=== PATIENT | male | born 1975 | race Caucasian/White ===

== ENCOUNTER 2022-04-18 07:27 | Inpatient (IN) ==
--- NOTE | 2022-04-16 08:51 | Anesthesiology Consultation ---
Date of Service April 16, 2022 Assessment & Plan (1) Encounter for pre-operative examination: COVID screening: Per assessment on 04/14: No known COVID-19 positive contacts or current COVID-19 related symptoms. Travel screen negative. Surgeon arranging preop COVID testing. Awaiting results. Chart Review Chart Review: Acceptable Risk for Surgery and Patient NOT seen in Pre Admission Testing History Surgery Operation Date: 04/18/22 07:15 Proposed Procedures p Right Hemiglossectomy and Right Functional Neck Dissection - Mary Martinez MD Height/Weight Height: 6 ft 2 in Weight: 74.389 kg Allergies Allergy/AdvReac Type Severity Reaction Status Date / Time Penicillins Allergy Unknown Unknown Verified 04/14/22 12:30 Medications Home Medications Medication Instructions Recorded Confirmed Last Taken lidocaine-prilocaine 2.5 %-2.5 % 1 applic TOPICAL QID #30 g 03/26/22 04/14/22 Unknown topical cream acetaminophen 500 mg tablet 2,000 mg PO Q4H PRN 04/14/22 04/14/22 Unknown Past Medical History Medical History Current smoker Past history of chewing tobacco use age 7 until age 20 Tongue cancer right lower tongue Past Family History Family History Mother Hypertension Stroke Other No family history of adverse response to anesthesia No family history of bleeding disorder Past Surgical History Surgical History History of oral surgery 3 teeth pulled History of surgery on lower extremity left leg (hardware/cydney placement) S/P arthroscopy of shoulder right S/P hardware removal left ankle STOP BANG Total 2 Social History Smoking Status: Current every day smoker tobacco type: cigarettes and smokeless tobacco Smoking cigarettes per day: 10 - 12 Do You Dip or Chew Tobacco: No (quit ~1994) Hx Alcohol Use: Yes Alcohol type: beer alcohol intake frequency: a few times a month Hx Substance Use: Yes substance use type: marijuana
--- NOTE | 2022-04-17 14:28 | History & Physical Report ---
Date of Service April 17, 2022 Assessment & Plan (1) Tongue cancer: Plan: Right hemiglossectomy, right functional neck dissection level 1 through 4 (2) Lymphadenopathy of right cervical region: History of Present Illness Chief Complaint: Squamous cell carcinoma right tongue Primary Care Provider: NO PCP This 46-year-old man, snuff chewer, developed ulceration right tongue, biopsy showed squamous cell carcinoma, T2N0 Allergies Allergy/AdvReac Type Severity Reaction Status Date / Time Penicillins Allergy Unknown Unknown Verified 04/14/22 12:30 Home Medications Medication Instructions Recorded Confirmed Type lidocaine-prilocaine 2.5 %-2.5 % 1 applic TOPICAL QID #30 g 03/26/22 04/14/22 Rx topical cream acetaminophen 500 mg tablet 2,000 mg PO Q4H PRN 04/14/22 04/14/22 History Past Med/Surg History Medical History Current smoker Past history of chewing tobacco use age 7 until age 20 Tongue cancer right lower tongue Surgical History History of oral surgery 3 teeth pulled History of surgery on lower extremity left leg (hardware/cydney placement) S/P arthroscopy of shoulder right S/P hardware removal left ankle Family History Mother Hypertension Stroke Other No family history of adverse response to anesthesia No family history of bleeding disorder Social History Smoking Status: Current every day smoker Tobacco Type: Cigarettes Age Started Using Tobacco: 23; packs per day: 1; Cigarettes Per Day: 10 - 12; Second Hand Exposure: Yes; Hx Alcohol Use: Yes Alcohol type: beer Alcohol Intake Frequency Comment: occasional Hx Substance Use: Yes Non-Prescribed Medications: Marijuana Preferred Language: Monegasque Communication Ability: Effective Business Support Professional Required: No Beliefs That Will Affect Care: None Current Living Situation: Family and Significant Other Feels Safe at Home: Yes Assistive Devices: Glasses Physical Exam Constitutional: WD/WN, vitals as above Eyes: PERRL, conjunctivae normal, anicteric sclerae ENMT: external ear and nose normal, oropharynx normal Mouth: + tongue abnormality (3 cm exophytic ulcerative lesion right lateral tongue) Neck: Tender right submandibular node, probably reactive less than 1 cm Respiratory: normal respiratory effort, lungs clear to auscultation Cardiovascular: RRR, no murmur, no edema PG Care Time/CCT Total # of Minutes Spent Total Time Spent with Patient: Total time spent is greater than 50% in coordination of care (as documented) at patient's floor/unit and/or counseling patient: Coding Level of Care Code None Diagnoses Tongue cancer C02.9 Lymphadenopathy of right cervical region R59.0
[~2022-04-18 07:27] MED LIST: ALLERGY Noted to ORDERED Medication SCH; LR 15ML/HR IV SCH
--- NOTE | 2022-04-18 08:14 | History & Physical Bridge Note ---
Date of Service April 18, 2022 History & Physical Bridge Note I have examined the patient, reviewed the History & Physical and in the interval since the performance of the History & Physical I have noted the following changes of clinical significance: no changes noted
[2022-04-18] MEDS ORDERED: ceFAZolin 2000MG 2,000 MG/15 ML SYR IV ONE ×2 (08:32→18:00)
[2022-04-18] MEDS ORDERED: ceFAZolin 2,000 MG/15 ML IV PUSH IV ONE (08:35)
[2022-04-18] MEDS ORDERED: CHLORHEXIDINE GLUCONATE 0.12% 480 ML ONE (08:51)
[2022-04-18] MEDS ORDERED: BACITRACIN OINT 15 GM TUBE ONE (08:51)
[2022-04-18] MEDS ORDERED: LIDOCAINE 2%/EPINEPHRINE 1:100,000 20ML ONE (08:51)
[2022-04-18] MEDS ORDERED: PROPOFOL IV EMULSION 10 MG/ML 20 ML VIAL IV ONE (08:51)
[2022-04-18] MEDS ORDERED: MIDAZOLAM HCL 1 MG/ML 2ML VIAL ONE (08:52)
[2022-04-18] MEDS ORDERED: EPINEPHrine INJ 1 MG/ML AMP ONE (08:52)
[2022-04-18] MEDS ORDERED: BUPIVACAINE 0.5 % 5 MG/1 ML MPF 30ML VIAL ONE (08:52)
[2022-04-18] MEDS ORDERED: fentaNYL citrate 100 MCG/2 ML VIAL ONE ×3 (08:53→13:30)
[2022-04-18] MEDS ORDERED: HYDROmorphone INJ 1 MG/ML SYRINGE ONE (10:16)
[2022-04-18] MEDS ORDERED: CISATRACURIUM BESYLATE IV SOLN 2 MG/ML 10 ML VIAL IV ONE ×2 (10:29→11:33)
[2022-04-18] MEDS ORDERED: SUCCINYLCHOLINE CHLORIDE 20 MG/ML 10 ML VIAL IV ONE (10:29)
[2022-04-18] MEDS ORDERED: HYDROmorphone INJ 2 MG/ML SYR/VIAL ONE (10:29)
[2022-04-18] MEDS ORDERED: ONDANSETRON INJ 2 MG/ML 2 ML VIAL ONE (11:04)
[2022-04-18] MEDS ORDERED: DEXAMETHASONE SOD INJ 4 MG/ML VIAL ONE (11:04)
[2022-04-18] MEDS ORDERED: NEOSTIGMINE METHYLSULFATE 1 MG/ML 10ML VIAL ONE (12:24)
[2022-04-18] MEDS ORDERED: GLYCOPYRROLATE 0.2 MG/ML VIAL ONE (12:24)
[2022-04-18] MEDS ORDERED: LORazepam 1 MG in SYRINGE 0.5 ML IV PRN (12:48)
[2022-04-18] MEDS ORDERED: ACETAMINOPHEN/HYDROcodone ELIX 15 ML/CUP PO PRN ×2 (12:48)
[2022-04-18] MEDS ORDERED: ONDANSETRON INJ 2 MG/ML 2 ML VIAL IV PRN ×2 (12:48→12:58)
[2022-04-18] MEDS ORDERED: ACETAMINOPHEN SUSP 325 MG/10.15 ML UDC PO PRN (12:48)
[2022-04-18] MEDS ORDERED: MAGNESIUM HYDROXIDE SUSP 30 ML UDC PO PRN (12:53)
[2022-04-18] MEDS ORDERED: ZOLPIDEM TARTRATE 5 MG TAB PO PRN (12:53)
[2022-04-18] MEDS ORDERED: NALOXONE HCL 0.4 MG/1 ML VIAL/CARP IV PRN (12:58)
[2022-04-18] MEDS ORDERED: LABETALOL HCL IV 5 MG/ML 20ML IV PRN (12:58)
[2022-04-18] MEDS ORDERED: PROMETHAZINE HCL 12.5 MG in SODIUM CHLORIDE 0.9% 50 ML IV PRN (12:58)
[2022-04-18] MEDS ORDERED: ePHEDrine sulfate 50 MG/ML AMP IV PRN (12:58)
[2022-04-18] MEDS ORDERED: FLUMAZENIL 0.1 MG/1 ML 10 ML VIAL IV PRN (12:58)
[2022-04-18] MEDS ORDERED: HYDROmorphone INJ 1 MG/ML SYRINGE IV PRN (12:58)
[2022-04-18] MEDS ORDERED: ATROPINE SULFATE 0.1 MG/ML 10ML SYR IV PRN (12:58)
[2022-04-18] MEDS ORDERED: KETOROLAC 30 MG/ML VIAL IV PRN (12:58)
--- NOTE | 2022-04-18 13:08 | Operative Report ---
PG Post Operative Report Pre & Post Diagnosis Operation Date: 04/18/22 08:45 Pre-Op Diagnosis: Tongue Cancer Post-Op Diagnosis: Tongue Cancer I identified the patient and participated in the time-out.: Yes Procedure Operation Date: 04/18/22 08:45 Actual Procedures p Right Functional Neck Dissection, Right Hemiglossectomy(Right) - Mary Martinez MD Surgeon Mary Martinez MD Hair Specialist none Estimated Blood Loss 110 Findings Consistent with Post-Op Diagnosis 2.5 cm squamous cell carcinoma right lateral tongue Specimens Right hemiglossectomy, right functional neck Anesthesia Type General Complications None Description of Procedure He was brought to the operating room, properly identified, prepped with ChloraPrep and draped in the usual sterile manner. General endotracheal anesthesia was induced. The oral cavity was prepped with chlorhexidine mouthwash. The neck was hyperextended with a shoulder roll. The head was rotated toward the left. The right neck apron flap type incision was marked out and injected with 2% Xylocaine with 1-100,000 strength epinephrine. The incision was U-shaped incision extending from the mastoid tip down to the supraclavicular fossa and then curving anterior superiorly to the submental area. This was made using a 15 blade and carried down through the skin and subcutaneous layer and then the platysma layer. External jugular vein was encountered and was eventually transected. Superior skin flap and inferior skin flaps were elevated using the Metzenbaum scissors and the harmonic scalpel. Dissection was started inferiorly at the omohyoid. Dissection was performed around the sternocleidomastoid muscle peeling the fascia off of the anterior border and then the medial border of the sternocleidomastoid muscle down to the jugular vein. Dissection was continued anteriorly to the carotid sheath and then following the omohyoid anteriorly to the submental area. This packet of tissue essentially dissecting the layer between the superficial layer of the cervical fascia and the deep layer of the cervical fascia was then dissected superiorly. Ansa hypoglossal was encountered and preserved. Posteriorly the dissection was medial to the sternocleidomastoid and extended superiorly to the tip of the mastoid and then the dissection was continued anteriorly to the submental area. Submandibular gland was transected of its lower portion which was sent with specimen. 2 cm node in the submental area was dissected free and sent in the specimen. Posteriorly the high jugular nodes were dissected free and peeled inferiorly. Dissection was continued from inferiorly to superiorly along the jugular vein and along the carotid sheath. Carotid sheath itself was not opened. In this manner the entire packet of level 1-3 and 4 nodes were dissected free and sent to pathology. Hemostasis was controlled using the harmonic scalpel and the bipolar cautery. Superiorly the posterior facial vein entering into the jugular vein had to be suture ligated with a 2-0 silk suture. The wound was irrigated with saline. Hemostasis was noted be good. The wound was closed in layers with interrupted 3-0 Vicryl sutures on the platysma layer and on the subcutaneous layer. The skin was closed with skin mary. A Jong-Phan drain was placed at the inferior border of the wound and sewn in place with 3-0 Vicryl suture. Light pressure dressing was placed. Attention was turned to the oral cavity. Mouthgag was placed. The tongue was injected with 2% Xylocaine with 1-100,000 strength epinephrine. The tumor was measured to be 2.5 cm. It did curve toward the midline anteriorly therefore another additional 0.5 cm of the left lateral border which extended into the left tongue was also excised. Incision was started using the cutting current on the Bovie. Further dissection and excision was performed using the harmonic scalpel excising the right anterior half of the tongue, essentially finishing the hemiglossectomy transecting the glossal muscles posteriorly. The tongue was closed by pulling the mucosa under the tongue superiorly to close to the border of the mid tongue. [id number] 3-0 Vicryl sutures were used to close the tongue. Again hemostasis was noted to be good the pharynx was suctioned clean. He tolerated the procedure well and was taken recovery area in satisfactory condition. I attest to the content of the Intraoperative Record and any orders documented therein. Any exceptions are noted below.
[2022-04-18] MEDS: fentaNYL citrate 100 MCG/2 ML VIAL IV PRN ×2 (13:33→13:38)
--- NOTE | 2022-04-18 13:47 | Anesthesiology Progress Note ---
Date of Service April 18, 2022 Anesthesia Post Procedure Vital Signs Vital Signs: Temp Pulse Pulse Resp BP Pulse Ox 04/18/22 13:40 81 14 137/82 95 04/18/22 13:30 70 14 143/91 H 95 04/18/22 13:20 36.4 C L 67 14 136/83 95 04/18/22 13:10 61 14 141/86 H 94 04/18/22 13:00 80 14 143/84 H 98 04/18/22 12:51 36.2 C L 85 15 151/85 H 100 04/18/22 08:02 36.5 C 72 18 149/98 H 95 Pain Intensity Right Tongue: Pain Intensity: 7 Transfer of Care Handoff Completed per policy Notes Mental Status: alert / awake / arousable Patient Amnestic to Procedure: Yes Nausea / Vomiting: adequately controlled Pain: adequately controlled Airway Patency, RR, SpO2: stable & adequate BP & HR: stable & adequate Hydration State: stable & adequate Anesthetic Complications: no major complications apparent
[2022-04-18] MEDS ORDERED: FLUARIX QUADRIVALENT 0.5 ML SYR IM ONE (14:48)
[2022-04-18] MEDS: MoRPHine SULFATE 2 MG/ML CARP IV PRN ×9 (14:53→23:29)
--- NOTE | 2022-04-18 14:55 | XRay Report ---
XR mandible <4V CLINICAL HISTORY: Status Post-Op Surgery AP Mandibular and Jaw View COMPARISON: Neck CT 12/04/2021. FINDINGS: Postoperative findings within the right neck are noted, including skin mary and a surgi evelio drain. Vascular calcification within the carotids is incidentally noted. No unexpected radiopaque foreign bodies. IMPRESSION: Postoperative radiographs, as described above. ACT 112: Negative or not required by law. Electronically signed by: Jey Danielson M.D. 04/18/2022 2:54 PM
[2022-04-18] MEDS: D5W AND 1/2NSS + 20MEQ KCL 20 MEQ/1,000 ML BAG IV SCH (15:25)
[2022-04-19] MEDS: D5W AND 1/2NSS + 20MEQ KCL 20 MEQ/1,000 ML BAG IV SCH ×2 (00:32→10:11)
[2022-04-19] MEDS: MoRPHine SULFATE 2 MG/ML CARP IV PRN ×12 (00:33→12:38)
[2022-04-19] MEDS ORDERED: methylPREDNISolone 100 MG in SYRINGE 0 ML IV SCH (09:00)
--- NOTE | 2022-04-19 09:44 | Discharge Summary ---
Date of Service April 19, 2022 Admission HPI Per Admitting Provider This 46-year-old man, snuff chewer, developed ulceration right tongue, biopsy showed squamous cell carcinoma, T2N0 Admission Exam (Per Admitting) Constitutional WD/WN, vitals as above Eyes PERRL, conjunctivae normal, anicteric sclerae ENMT external ear and nose normal, oropharynx normal Mouth: + tongue abnormality (Status post hemiglossectomy) Neck Status post right functional neck dissection, no sign of hematoma Respiratory normal respiratory effort, lungs clear to auscultation Cardiovascular RRR, no murmur, no edema Discharge Data Procedures Performed Operation Date: 04/18/22 08:45 Actual Procedures p Right Functional Neck Dissection, Right Hemiglossectomy(Right) - Mary Martinez MD Hospital Course (1) Tongue cancer: Right hemiglossectomy, right functional neck dissection level 1 through 4 was performed without complications, recovering well, tolerating full liquid diet, no sign of hematoma, will discharge, recheck in the office on Thursday. (2) Lymphadenopathy of right cervical region:
[2022-04-19] MEDS ORDERED: MUPIROCIN 2% OINT 22 GM TUBE EXT SCH (09:45)
[2022-04-19] MEDS ORDERED: ceFAZolin 2000MG 2,000 MG/15 ML SYR IV SCH (10:00)
== END 2022-04-19 12:45 | disposition home or self-care (01) | DRG 130 ==
LOC: ASU 07:27 → 2S 12:54